=== PATIENT | male | born 1970 | race American Indian/Alaskan Native ===

== ENCOUNTER 2018-08-10 19:06 | Emergency (ER) | payer MEDICARE ==
[2018-08-10] MEDS ORDERED: MORPHINE IM ONE (19:55)
[2018-08-10] MEDS ORDERED: THERMAZENE 50 GRAM TP ONE (20:01)
[2018-08-10] MEDS ORDERED: NORCO 7.5/325 PO ONE (20:25)
[2018-08-10 20:36] VITALS: BP 152/110
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
== END 2018-08-10 21:18 | disposition home or self-care (01) ==
LOC: ED 19:06
DX: T23.201A Burn of second degree of right hand, unspecified site, initial encounter (principal); X19.XXXA Contact with other heat and hot substances, initial encounter; Y93.89 Activity, other specified; Y92.89 Other specified places as the place of occurrence of the external cause; Y99.8 Other external cause status
CPT/HCPCS: 99282

== ENCOUNTER 2021-06-06 03:13 | Emergency (ER) | payer MEDICARE ==
--- NOTE | 2021-06-06 05:36 | Emergency Department Report ---
ED ENT HPI - General Chief complaint: Upper Respiratory Infection Stated complaint: BACK PAIN/BODY ACHE/SORE THROAT Time Seen by Provider: 06/06/21 04:42 Source: patient Mode of arrival: Ambulatory Limitations: No Limitations - History of Present Illness Initial comments: 50-year-old -[place] male [facility] emerge department complaining of 4 to 5-day history of sore throat with some nasal congestion odynophagia mild disc dysphagia no fevers chills or sweats. Reports no chest pain or palpitations. No hemoptysis no hematemesis hematochezia. MD complaint: sore throat -: Gradual Location: throat Severity: mild, moderate Consistency: constant Improves with: none Worsens with: swallowing Context- Dental: poor dental care Associated Symptoms: sore throat - Related Data Previous Rx's Medication Instructions Recorded Last Taken Type Silver Sulfadiazine [Silvadene] 1 applicatio TP TID #50 gm 08/10/18 Unknown Rx Albuterol Sulfate [Proair 90 mcg IH Q4HR PRN #2 aer.pow.ba 11/05/19 Unknown Rx Respiclick] Aspirin [Aspirin BABY CHEW TAB] 81 mg PO QDAY #30 tab.chew 11/05/19 Unknown Rx Furosemide [Lasix] 20 mg PO QDAY #30 tablet 11/05/19 Unknown Rx Azithromycin [Zithromax] 500 mg PO QDAY #5 tablet 06/06/21 Unknown Rx Chlorhexidine Mouthwash [Peridex] 15 ml MM BID #1 bottle 06/06/21 Unknown Rx Lidocaine Viscous 2% 5 ml MM Q3H PRN #120 udc 06/06/21 Unknown Rx Allergies Allergy/AdvReac Type Severity Reaction Status Date / Time ampicillin Allergy Swelling Verified 06/06/21 03:20 Penicillins Allergy Swelling Verified 06/06/21 03:20 ED Dental HPI - General Chief complaint: Upper Respiratory Infection Stated complaint: BACK PAIN/BODY ACHE/SORE THROAT Time Seen by Provider: 06/06/21 04:42 Source: patient Mode of arrival: Ambulatory Limitations: No Limitations - Related Data Previous Rx's Medication Instructions Recorded Last Taken Type Silver Sulfadiazine [Silvadene] 1 applicatio TP TID #50 gm 08/10/18 Unknown Rx Albuterol Sulfate [Proair 90 mcg IH Q4HR PRN #2 aer.pow.ba 11/05/19 Unknown Rx Respiclick] Aspirin [Aspirin BABY CHEW TAB] 81 mg PO QDAY #30 tab.chew 11/05/19 Unknown Rx Furosemide [Lasix] 20 mg PO QDAY #30 tablet 11/05/19 Unknown Rx Azithromycin [Zithromax] 500 mg PO QDAY #5 tablet 06/06/21 Unknown Rx Chlorhexidine Mouthwash [Peridex] 15 ml MM BID #1 bottle 06/06/21 Unknown Rx Lidocaine Viscous 2% 5 ml MM Q3H PRN #120 udc 06/06/21 Unknown Rx Allergies Allergy/AdvReac Type Severity Reaction Status Date / Time ampicillin Allergy Swelling Verified 06/06/21 03:20 Penicillins Allergy Swelling Verified 06/06/21 03:20 ED Review of Systems ROS: Stated complaint: BACK PAIN/BODY ACHE/SORE THROAT Other details as noted in HPI Comment: All other systems reviewed and negative ED Past Medical Hx - Past Medical History Hx Hypertension: Yes Hx Asthma: Yes - Surgical History Additional Surgical History: Tummy Tuck - Social History Smoking Status: Never Smoker - Medications Home Medications: Home Medications Medication Instructions Recorded Confirmed Last Taken Type Silver Sulfadiazine [Silvadene] 1 applicatio TP TID #50 gm 08/10/18 Unknown Rx Albuterol Sulfate [Proair 90 mcg IH Q4HR PRN #2 aer.pow.ba 11/05/19 Unknown Rx Respiclick] Aspirin [Aspirin BABY CHEW TAB] 81 mg PO QDAY #30 tab.chew 11/05/19 Unknown Rx Furosemide [Lasix] 20 mg PO QDAY #30 tablet 11/05/19 Unknown Rx Azithromycin [Zithromax] 500 mg PO QDAY #5 tablet 06/06/21 Unknown Rx Chlorhexidine Mouthwash [Peridex] 15 ml MM BID #1 bottle 06/06/21 Unknown Rx Lidocaine Viscous 2% 5 ml MM Q3H PRN #120 udc 06/06/21 Unknown Rx ED Physical Exam - General Limitations: No Limitations General appearance: alert, in no apparent distress - Head Head exam: Present: atraumatic, normocephalic - Eye Eye exam: Present: normal appearance - ENT ENT exam: Present: mucous membranes moist, other (Pharyngitis pharynx red some swelling no exudate.) - Neck Neck exam: Present: normal inspection, lymphadenopathy (Tonsillar lymphadenopathy) - Respiratory Respiratory exam: Present: normal lung sounds bilaterally. Absent: respiratory distress, rhonchi, stridor - Cardiovascular Cardiovascular Exam: Present: regular rate, normal rhythm. Absent: tachycardia, irregular rhythm, systolic murmur, diastolic murmur, rubs, gallop - GI/Abdominal GI/Abdominal exam: Present: soft, normal bowel sounds. Absent: guarding, rebound, hyperactive bowel sounds, hypoactive bowel sounds - Rectal Rectal exam: Present: deferred - Extremities Exam Extremities exam: Present: normal inspection, full ROM, normal capillary refill. Absent: tenderness - Back Exam Back exam: Present: normal inspection. Absent: CVA tenderness (R), CVA tenderness (L) - Neurological Exam Neurological exam: Present: alert, oriented X3, CN II-XII intact, normal gait - Psychiatric Psychiatric exam: Present: normal affect, normal mood - Skin Skin exam: Present: warm, dry, intact, normal color. Absent: rash, diaphoretic, erythema ED Course Vital Signs 06/06/21 03:14 Temperature 98.6 F Pulse Rate 75 Respiratory 18 Rate Blood Pressure 144/93 [Right] O2 Sat by Pulse 98 Oximetry ED Medical Decision Making - Medical Decision Making 50-year-old male with no history of any compromised nontoxic appearance patient is euvolemic with no trismus no airway compromise unable to tolerate p.o. given history and examination low suspicion for this presentation being caused by peritonsillar abscess, Arsen, bacterial tracheitis, acute HIV, epiglottitis, retropharyngeal abscess. Critical care attestation.: If time is entered above; I have spent that time in minutes in the direct care of this critically ill patient, excluding procedure time. ED Disposition Clinical Impression: Pharyngitis Disposition: HOME / SELF CARE / HOMELESS Is pt being admited?: No Does the pt Need Aspirin: No Condition: Stable Instructions: Pharyngitis, Sore Throat Prescriptions: Lidocaine Viscous 2% 5 ml MM Q3H PRN #120 udc PRN Reason: Pain, Moderate (4-6) Chlorhexidine Mouthwash [Peridex] 15 ml MM BID #1 bottle Azithromycin [Zithromax] 500 mg PO QDAY #5 tablet Referrals: [facility] [Provider Group] - 3-5 Days
[2021-06-06 06:55] VITALS: BP 150/80
== END 2021-06-06 06:46 | disposition home or self-care (01) ==
LOC: ED 03:13
DX: J02.9 Acute pharyngitis, unspecified (principal); I10 Essential (primary) hypertension; J45.909 Unspecified asthma, uncomplicated; Z88.0 Allergy status to penicillin; Z79.899 Other long term (current) drug therapy
CPT/HCPCS: 99282